=== PATIENT | female | born 1950 | race Caucasian/White ===

== ENCOUNTER → 2018-03-30 09:07 | Outpatient (CLI) | payer MEDICARE ==
--- NOTE | ~2018-03-30 | EC ---
PATIENT:CARLOZ HENDRIX DATE OF SERVICE: 03/30/18 SEX: F MEDICAL RECORD: [id number] DATE OF : [birth year] LOCATION:[facility] AGE OF PATIENT: 67 ADMISSION DATE: 03/30/18 REFERRING PHYSICIAN: INTERPRETING PHYSICIAN: FROY MAZARIEGOS MD ECHOCARDIOGRAM REPORT ECHO CHARGES 4 ECHO COMPLETE Date: 03/30/18 CLINICAL DIAGNOSIS: DYSPENA ECHOCARDIOGRAPHIC MEASUREMENTS (adult normal given) AC root (d.<3.7cm) 2.6 cm LV Septum d (<1.2 cm> 1.4 cm Valve Excursion 1.5 cm LV Septum (systole) 1.7 cm Left Atria (s.<4.0cm> 3.5 cm LVPW d(<1.2cm) 0.9 cm RV (d.<2.3cm) 2.8 cm LVPW (sytole) 1.3 cm LV diastole(<5.6CM) 4.2 cm MV E-F(>70mm/sec) cm LV systole 3.2 cm LVOT Diameter 1.7 cm MV exc.(>10mm) cm Est.ejection fraction (50-75%) % DOPPLER: LVIT cm/sec A 84 cm/sec E 71 cm/sec LA cm/sec RVSP 27.6 mmHg LVOT 88 cm/sec AOP1/2T m/s Asc. Ao 115 cm/sec RVOT 71 cm/sec RA cm/sec PA 69 cm/sec AV Gradient Peak 5.3 mmHg AV Mean 3.2 mmHg AV Area 2.1 cm MV Gradient Peak 3.6 mmHg MV Mean 0.9 mmHg MV Area cm COMMENTS: Efficiency [employer] Blasting: Amado BJORN MAIA Hemodialysis Technician: Gustavo Mazariegos TAPE# PACS Pericardial Effusion N DATE OF SERVICE: PROCEDURE: Transthoracic echocardiogram. FINDINGS: 1. Left ventricle was shown to have left ventricular hypertrophy. Inflow characteristics consistent with diastolic dysfunction. Ejection fraction is 55% to 60%. 2. The aortic valve appears to be normal. The aortic root has mild calcification. ECHOCARDIOGRAM REPORT [id number] CARLOZ HENDRIX 3. The mitral valve is normal. 4. The tricuspid valve is normal. 5. The left atrium is normal. 6. The right ventricle is mildly dilated. 7. The right atrium is normal. CONCLUSIONS: The patient has normal echocardiogram for patient's stated age with the exception of evidence of mild hypertensive heart disease. TRANSINT:[id number] Voice Confirmation ID: [id number] DOCUMENT ID: [id number] FROY MAZARIEGOS MD at 0738 CC: [id number] DICTATION DATE: 04/03/18 0742 DYE MIXER: 04/03/18 0749 DEP CLI 03/30/18 [id number] [place] [address]
== END | disposition home or self-care (01) ==
LOC: D.ECHO 09:07
DX: R06.00 Dyspnea, unspecified (principal); R07.9 Chest pain, unspecified

== ENCOUNTER → 2018-05-22 18:03 | Outpatient (CLI) | payer MEDICARE ==
[2018-05-22 18:48] LABS: CHOL - HDL RATIO 4.4 ratio (2.3-4.1); LDL-HDL RATIO 2.4 ratio (1.5-3.5)
== END | disposition home or self-care (01) ==
LOC: D.LABREF 18:03
PROVIDERS: Internal Medicine Cardiovascular Disease
DX: I10 Essential (primary) hypertension (principal); I50.30 Unspecified diastolic (congestive) heart failure